=== PATIENT | female | born 1975 | race Caucasian/White ===

== ENCOUNTER 2018-01-01 17:01 | Day surgery (SDC) | payer BC ==
[~2018-01-01 17:01] MED LIST: Buffered Lidocaine 0.9% SYRIN* 5 ML/SYR SYRINGE INTRADERM ONE; DiMENhydriNATE IV* 50 MG/ML VIAL IV PUSH PRN; Famotidine TAB* 20 MG PO ONE; Morphine INJ* 2 MG/ML 1 ML CARPUJECT IV PRN; Naloxone* 0.4 MG/ML 1 ML VIAL IV PRN; Ondansetron INJ* 2 MG/ML VIAL ONE; PROCHLORPERAZINE INJ 5 MG/ML 2 ML VIAL IV PRN; Scopolamine 1.5 mg* PATCH TRANSDERM PRN; fentaNYL* 50 MCG/ML 2 ML VIAL (100 MCG VIAL) IV PRN; oxyCODONE/Acetamin 5/325 MG* TAB PO PRN
[2018-01-01] MEDS ORDERED: Ondansetron ODT TAB* 4 MG ONE (17:06)
[2018-01-01] MEDS ORDERED: Famotidine TAB* 20 MG ONE (17:06)
[2018-01-01] MEDS ORDERED: fentaNYL* 50 MCG/ML 2 ML VIAL (100 MCG VIAL) ONE (17:18)
[2018-01-01] MEDS ORDERED: Midazolam* 1 MG/ML 5 ML VIAL (5 MG) ONE (17:18)
[2018-01-01] MEDS ORDERED: KETAMINE HCL* 50 MG/ML 10 ML VIAL ONE (17:18)
[2018-01-01] MEDS ORDERED: Lidocaine 1% INJ* 10 MG/ML 30 ML SDV ONE (18:36)
[2018-01-01] MEDS ORDERED: Propofol* 10 MG/ML 20 ML BTL IV PUSH ONE (19:08)
[2018-01-01] MEDS ORDERED: EPHEDrine (Pressors)* 50 MG/ML VIAL ONE (19:08)
[2018-01-01] MEDS ORDERED: Ketorolac INJ* 30 MG/ML 1 ML VIAL ONE (19:08)
[2018-01-01] MEDS ORDERED: OXYTOCIN* 10 UNITS/ML 1 ML VIAL ONE (19:08)
[2018-01-01] MEDS ORDERED: Dexamethasone IV* 4 MG/ML 1 ML (4 MG) ONE (19:08)
[2018-01-01 20:19] VITALS: BP 126/93
--- NOTE | 2018-01-02 13:16 | OP ---
DATE OF OPERATION: 01/01/18 - [facility] DATE OF : 77 SURGEON: Jesus Manuel Pretty MD ANESTHESIA: Spinal. PRE-OP DIAGNOSIS: Incomplete . POST-OP DIAGNOSIS: Incomplete . OPERATIVE PROCEDURE: D and C. ESTIMATED BLOOD LOSS: Minimal. COMPLICATIONS: None. SPECIMENS: Include products of conception. FINDINGS: On exam under anesthesia, the uterus was retroverted and approximately 10 weeks size. There were no adnexal masses. Cervix, vagina, and vulva appeared normal. DESCRIPTION OF PROCEDURE: The patient identified, procedure identified as a D and C. The patient was taken to the operating room and prepped and draped in the usual fashion in dorsal lithotomy position under spinal anesthesia. Two single tooth tenaculums were placed on the anterior lip of the cervix. Cervix was already dilated to a #31 Rocha dilator. The #10 suction curette was inserted and suction curettage performed with moderate amount of tissue obtained. The sharp curette was inserted and a gritty sensation was felt throughout the circumference. No further tissue was obtained using the suction. All instruments removed from the vagina. The tenaculum sites had some bleeding, so a 3-0 Polysorb stitch was placed in these sites with good hemostasis. All sponge and instrument counts were correct, and good hemostasis was verified, and the patient returned to the recovery room in stable condition. [id number] #: [id number] MTDD
[2018-01-04] MEDS ORDERED: Scopolamine PATCH Remove* 1 NOTE MISC PATCH OFF ONE (17:00)
== END 2018-01-01 20:20 | disposition home or self-care (01) ==
LOC: OR 17:01
PROVIDERS: ATTEND Obstetrics & Gynecology
DX: O03.4 Incomplete spontaneous abortion without complication (principal)
CPT/HCPCS: 88305; A9270-GY; J1100; J1885; J2250; J2590; J2704; J3010